=== PATIENT | female | born 1940 | race Caucasian/White ===

== ENCOUNTER → 2020-03-01 | Outpatient (BNVA) | payer MEDICARE, BC, SELFPAY | END | disposition home or self-care (01) | PROVIDERS: PCP Family Medicine; Visit Provider Family Medicine ==

== ENCOUNTER 2024-08-09 21:03 | Emergency (ER) | payer MEDICARE, BC, SELFPAY ==
--- NOTE | 2024-08-09 21:07 | XR_ITS ---
Examination: Pelvic ultrasound, transabdominal, complete Technique: Transabdominal ultrasound of the pelvis performed using grayscale imaging Date and time of exam: August 09, 2024 2129 hrs. Indications: Onset vaginal bleeding today Findings: Uterus 8.8 cm endometrial stripe visualized Uterine fundal probable fluid 18 mm Suspicious for 3.1 cm Fundal mass Ovaries obscured by bowel gas Impression: Recommend transvaginal pelvic sonography follow-up to exclude uterine fundal mass 3.1 x 2.8 x 2.8 cm
--- NOTE | 2024-08-09 21:09 | PD.EDADULT ---
ED General RME/HPI General Chief complaint: Vaginal Bleeding Stated complaint: VAGINAL BLEEDING Time Seen by Provider: 08/09/24 22:31 Arrival date/time: 08/09/24 21:03 RME / HPI RME / HPI narrative: Patient is 83 years old female with past medical history of hypertension, osteoporosis, history of recurrent falls, atrial fibrillation on Xarelto, seizure and Parkinson's disease, uterine fibroids presented to the ED due to worsening vaginal bleeding. She reports bleeding began approximately 1 year ago and was just spotting. Today she developed heavy bleeding at home and called EMS. She was seen by B[employer] DES[employer] SALES CONSULTANT 1 year ago and biopsy was taken but the sample wasn't sufficient, she was offered to have surgery but refused and never followed up. She denies any fever, chills, abdominal pain, rectal bleeding, melena, diarrhea. She denies dysuria symptoms. Related Data Home Medications ?Medication ?Instructions ?Recorded ?Confirmed benazepril 20 mg tablet 20 mg PO QDAY High Blood Pressure 06/07/13 02/25/24 Held on 02/29/24. ##0 Instructions: Resume on 03/07/24. Hold due to normal BP. Resume per PCP alendronate 70 mg tablet 70 mg PO QWEEK #0 tabs 09/12/14 02/25/24 levetiracetam 750 mg tablet 750 mg PO BID 01/26/20 02/25/24 phenytoin sodium extended 100 mg 100 mg PO HS Seizures 02/25/24 02/25/24 capsule rivaroxaban 15 mg tablet (Xarelto) 15 mg PO HS 02/25/24 02/25/24 Previous Rx's ?Medication ?Instructions ?Recorded amiodarone 200 mg tablet 200 mg PO BID #60 tabs 03/01/24 hydrocodone 5 mg-acetaminophen 325 1 tab PO Q6H PRN pain #20 tabs 03/01/24 mg tablet Allergies Allergy/AdvReac Type Severity Reaction Status Date / Time No Known Allergies Allergy Verified 08/09/24 21:10 Review of Systems Review of Systems Systems Reviewed: All systems reviewed, normal except as documented ED Exam Narrative Physical exam: Gen: Well-developed and well-nourished eldely female. HEENT: NCAT, PERRLA, EOMI, MMM, anicteric conjunctivae. CVS: normal S1 and S2. RRR. No M/R/G. Resp: CTA B/L. No rhonchi, rales, crackles or wheezing. : No CVA or suprapubic tenderness. Abd: soft, non-tender, non-distended. BS+ in all 4 quadrants. MSK: Good ROM in BUE & BLE. No edema or rash. Neuro: CN II-XII grossly intact. Strength 5/5 in BUE & BLE. Alert and oriented x3. Tremor is noted in head and BUE. Psych: appropriate mood and affect. Course Quality Measures none Orders Category Date Time Status Landscape Nurseryman Q4H START 00 Care 08/09/24 21:08 Active IV [Insert IV] NOW Care 08/09/24 21:08 Active Straight [In and Out Catheter] X1 Care 08/09/24 22:27 Active US pelvic complete Stat Exams 08/09/24 21:07 Completed CBC Stat Lab 08/09/24 21:24 Completed CMP [Comprehensive Metabolic Panel] Stat Lab 08/09/24 21:24 Completed INR [Prothrombin Time with INR] Stat Lab 08/09/24 21:24 Completed PTT [Partial Thromboplastin Time] Stat Lab 08/09/24 21:24 Completed Type and Screen Stat Lab 08/09/24 21:24 Completed Urinalysis Stat Lab 08/09/24 23:01 Completed Vital Signs Vital signs: Vital Signs Temperature 98.6 F 08/09/24 21:10 Pulse Rate 69 08/09/24 21:10 Respiratory Rate 12 08/09/24 21:10 Blood Pressure 161/66 H 08/09/24 21:10 Pulse Oximetry (%) 98 08/09/24 21:10 Oxygen Delivery Method Room Air 08/09/24 21:10 [facility] Patient data External records reviewed:: [facility] previous records and EMS form Clinical information provided by:: patient and EMS Social determinants that could affect healthcare access:: none Patient has the following chronic illnesses:: hypertension, osteoporosis, history of recurrent falls, atrial fibrillation on Xarelto, seizure and Parkinson's disease, uterine fibroids How is presenting disease/condition affected by chronic disease/condition?: exacerbated by Evaluation data The following diagnostics were reviewed and interpreted by me:: lab results and radiology exam(s) Lab and/or radiology exams considered but not ordered:: CTAP Interpretation Summary: Uterine fibroid, suspicion for uterine cancer. Medications Medications considered but not ordered:: na Medication administrations:: none Consultations Consultation(s) initiated? (list below): No Diagnosis Differential Diagnosis ED Complaint MDM: Fibroid, uterine cancer, endometrial hyperplasia Most likely diagnosis given after review of the tests above:: Fibroid, possible uterine cancer. Admission Indicated Admission indicated?: not indicated Explain why admission is indicated or not indicated:: Patient is hemodynamically stable, her hemoglobin is 10.8. Patient refused transvaginal US. She will need to follow-up with PCP and [employer]ANT for definitive diagnostic and management of her fibroid and possible uterine cancer. Admission Request Was there a request for admission?: No Disposition Plan Disposition Plan: Discharge Discharge Attestation Discharge Attestation: The patient and all family members were given an opportunity to ask questions and understood the discharge instructions. Discharge instructions specifically effects, indications for sooner follow up or return to the emergency department, and the expected course of current diagnosis. Patient condition: Stable Medical Decision Making Differential Diagnosis Differential Diagnosis: Fibroid, uterine cancer, endometrial hyperplasia Lab Data 08/09/24 21:24 08/09/24 21:24 Labs: Lab Results 08/09/24 08/09/24 Range/Units 21:24 23:01 WBC 6.4 (3.6-11.0) Thou/mm3 RBC 3.37 L (4.00-5.20) Miln/mm3 Hgb 10.8 L (12.0-16.0) g/dL Hct 31.9 L (36.0-46.0) % MCV 95 (80-100) fL MCH 32.0 (25.0-35.0) pg MCHC 33.9 (31.0-37.0) g/dl RDW Std Deviation 45.0 (36.4-46.3) fL Plt Count 248 (140-440) Thou/mm3 Neut % (Auto) 53 (37-80) % Lymph % (Auto) 40 (10-50) % [place] % (Auto) 6 (0-12) % Eos % (Auto) 1 (0-10) % Baso % (Auto) 1 (0-2.5) % Neut # (Auto) 3.4 (1.8-7.7) Thou/mm3 Lymph # (Auto) 2.6 (1.0-4.8) Thou/mm3 [place] # (Auto) 0.4 (0.0-0.8) Thou/mm3 Eos # (Auto) 0.0 (0.0-0.5) Thou/mm3 Baso # (Auto) 0.0 (0.0-0.2) Thou/mm3 Immature Gran # (Auto) 0.01 H (0.00-0.00) Thou/mm3 Absolute Nucleated RBC 0.00 (0.00-0.00) Thou/mm3 Immature Gran % 0 (0-0) % Nucleated RBC % 0 (0) /100 WBC PT 15.3 H (9.0-12.2) Seconds INR 1.4 H (0.9-1.3) APTT 39.5 H (22.0-36.0) Seconds Sodium 145 (136-145) mMol/L Potassium 4.1 (3.4-5.1) mMol/L Chloride 109 H (98-107) mMol/L Carbon Dioxide 26.4 (20.0-31.0) mMol/L Anion Gap 10 (7-16) BUN 12 (9-23) mg/dL Creatinine 1.0 (0.6-1.3) mg/dL Estim Creat Clear Calc 36.0 L (>60) mL/min eGFR 55 L (60 - ) See Note BUN/Creatinine Ratio 12 (12-20) Ratio Glucose 105 (74-106) mg/dL Calculated Osmolality 288 (275-295) Calcium 9.7 (8.3-10.6) mg/dL Corrected Calcium 9.7 (8.5-10.1) mg/dL Total Bilirubin 0.2 L (0.3-1.2) mg/dL AST 14 (0-34) U/L ALT 7 L (10-49) U/L Alkaline Phosphatase 147 H (46-116) U/L Total Protein 6.8 (5.7-8.2) gm/dL Albumin 4.2 (3.4-4.8) gm/dL Globulin 2.6 (2.3-3.5) gm/dL Albumin/Globulin Ratio 1.6 (1.2-2.2) Ur Collection Type Clean Catch Urine Color Colorless A (Lt Yel-Yel) Urine Clarity Clear (Clear/Hazy) Urine pH 7.0 (5.0-7.0) Ur Specific [place] 1.005 (1.001-1.035) Urine Protein Negative (Neg - Trace) Urine Glucose (UA) Negative (Negative) Urine Ketones Negative (Negative) Urine Blood Trace (Negative) Urine Nitrite Negative (Negative) Urine Bilirubin Negative (Negative) Urine Urobilinogen (Auto) Negative (0.0-1.0) mg/dL Ur Leukocyte Esterase Negative (Negative) Urine RBC < 1 (0-3) /hpf Urine WBC < 1 (0-5) /hpf Ur Squamous Epith Cells < 1 (0-5) /hpf Urine Bacteria None (None) Blood Type A Positive Antibody Screen NEGATIVE Blood Bank Wristband ID Yes Discharge Plan Plan Patient Disposition: HOME (Self Care) Patient condition on transfer: Stable Prescriptions/Referrals Prescriptions/Med Rec: No Action benazepril 20 mg Tablet 20 mg PO QDAY Qty: 0 alendronate 70 mg Tablet 70 mg PO QWEEK Qty: 0 Rx Instructions: THURSDAY levetiracetam 750 mg tablet 750 mg PO BID phenytoin sodium extended 100 mg capsule 100 mg PO HS Patient Comments: FOR SEIZURE CONTROL Xarelto 15 mg tablet 15 mg PO HS amiodarone 200 mg tablet 200 mg PO BID Qty: 60 0RF hydrocodone-acetaminophen 5-325 mg tablet 1 tab PO Q6H MDD 20mg PRN (Reason: pain) Qty: 20 0RF Referrals: No Primary/Family,Physician [Primary Care Provider] - In 1 week Problem List Clinical Impression: Vaginal bleeding, Fibroid, uterine Patient/Caregiver Discharge Instructions Additional Instructions: -follow up with PCP and OBGYN within 1 week. -You need to have definitive work up including biopsy to rule out malignancy. Failure to do so can lead to misdiagnose and significant complications. -continue home medications as prescribed. -return to the Ed if symptoms recur or worsen. Print Language: Maltese Stand Alone Forms: Jennifer Award Info., Patient Portal Info Letter Attestation Attestation I, Dr. Mas, have reviewed the history, exam, and assessment of the patient. I have evaluated the patient independently and agree with the plan of care documented by resident Presley Allen. All diagnostic studies were reviewed and discussed. I confirm the diagnosis as documented by the resident. I was present during the Medical Decision Making for this patient. The patient's plan of care was created between myself and the Resident and consistent with our discussion of the patient's case.
[2024-08-09 21:10] VITALS: BP 161/66; PULSE 68; PULSE 69; PULSE 85; RESP 12; RESP 24; TEMP 37; O2SAT 95; O2SAT 98; BMI 25.6
[2024-08-09 21:11] VITALS: BP 161/66; PULSE 69; RESP 19; TEMP 36.8; O2SAT 98
[2024-08-09 22:03] LABS: Basophils % (Auto) 1 % (0-2.5); Eosinophils % (Auto) 1 % (0-10); Hematocrit 31.9 % (36.0-46.0); Hemoglobin 10.8 g/dL (12.0-16.0); Immature Granulocytes % (Auto) 0 % (0-0); Immature Granulocytes Auto 0.01 Thou/mm3 (0.00-0.00); Lymphocytes # (Auto) 2.6 Thou/mm3 (1.0-4.8); Lymphocytes % (Auto) 40 % (10-50); Mean Corpuscular HGB Conc 33.9 g/dl (31.0-37.0); Mean Corpuscular Volume 95 fL (80-100); Monocytes # (Auto) 0.4 Thou/mm3 (0.0-0.8); Monocytes % (Auto) 6 % (0-12); Neutrophils # (Auto) 3.4 Thou/mm3 (1.8-7.7); Neutrophils % (Auto) 53 % (37-80); Nucleated Red Blood Cell % 0 /100 WBC (0); Platelet Count 248 Thou/mm3 (140-440); Red Blood Count 3.37 Miln/mm3 (4.00-5.20); White Blood Count 6.4 Thou/mm3 (3.6-11.0)
[2024-08-09 22:11] LABS: INR 1.4 (0.9-1.3); Partial Thromboplastin Time 39.5 Seconds (22.0-36.0); Prothrombin Time 15.3 Seconds (9.0-12.2)
[2024-08-09 22:22] LABS: Alanine Aminotransferase 7 U/L (10-49); Albumin, Serum 4.2 gm/dL (3.4-4.8); Albumin/Globulin Ratio 1.6 (1.2-2.2); Alkaline Phosphatase 147 U/L (46-116); Anion Gap 10 (7-16); Aspartate Amino Transferase 14 U/L (0-34); BUN/Creatinine Ratio 12 Ratio (12-20); Bilirubin,Total 0.2 mg/dL (0.3-1.2); Blood Urea Nitrogen 12 mg/dL (9-23); Calcium 9.7 mg/dL (8.3-10.6); Calcium (Corrected) 9.7 mg/dL (8.5-10.1); Carbon Dioxide 26.4 mMol/L (20.0-31.0); Chloride 109 mMol/L (98-107); Globulin 2.6 gm/dL (2.3-3.5); Glucose 105 mg/dL (74-106); Osmolality,Calculated 288 (275-295); Potassium 4.1 mMol/L (3.4-5.1); Sodium 145 mMol/L (136-145); Total Protein 6.8 gm/dL (5.7-8.2); eGFR 55 See Note
--- NOTE | 2024-08-09 22:41 | EDNOTE_ITS ---
Emergency Room Addendum Addendum Narrative: I spoke to the patient and the daughter. The patient has been seen by STAFF [employer] OFFICER and had a biopsy but she states there was not enough sample and the patient states they wanted to do surgery she did not follow-up. When I talked to the daughter about this she states that Dr. Rey would like to send her to [place] and the patient has an appointment on the . I talked to her about whether she needs a pelvic ultrasound today and she would not want that today. I did talk to the daughter let her know that on her July pelvic ultrasound they suggested perhaps better visualization could have been completed with an MRI with and without contrast. I asked the daughter to discuss this with the primary care for further management, if needed The patient is not actively bleeding at this time and has not changed her pad when she has been in the emergency department
[2024-08-09 23:10] LABS: Collection Type, Urine Clean Catch
[2024-08-09 23:17] LABS: Bilirubin,Urine Negative (Negative); Blood,Urine Trace (Negative); Clarity,Urine Clear (Clear/Hazy); Color,Urine Colorless (Lt Yel-Yel); Glucose, Urine Negative (Negative); Ketones,Urine Negative (Negative); Leukocyte Esterase,Urine Negative (Negative); Nitrite,Urine Negative (Negative); Protein,Urine Negative (Neg - Trace); RBC,Urine < 1 /hpf (0-3); Specific Gravity,Urine 1.005 (1.001-1.035); Squamous Epithelial Cell,Urine < 1 /hpf (0-5); Urobilinogen,Urine Negative mg/dL (0.0-1.0); WBC,Urine < 1 /hpf (0-5)
[2024-08-10 00:05] VITALS: BP 175/80; PULSE 68; RESP 19; O2SAT 99
== END 2024-08-09 23:40 | disposition home or self-care (01) ==
PROVIDERS: Student in an Organized Health Care Education/Training Program; Emergency Provider Emergency Medicine
DX: D25.9 Leiomyoma of uterus, unspecified (principal)
CPT/HCPCS: 36415; 76856; 80053; 81001; 85025; 85610; 85730; 86850; 86900; 86901; 99284

== ENCOUNTER → 2024-08-16 | Outpatient (CLI) | payer MEDICARE, BC, SELFPAY ==
--- NOTE | 2024-08-16 09:09 | XR_ITS ---
Examination: Transvaginal ultrasound of the pelvis, complete Technique: Transvaginal sonographic images pelvis performed using alexander scale imaging Exam date and time: August 16, 2024 0927 hours INDICATIONS: Vaginal bleeding beginning one year ago FINDINGS: Uterus 6.2 cm endometrial stripe 0.3 cm Small benign cervical cyst No uterine mass Right ovary obscured by bowel gas Left ovary 1.8 cm arterial flow IMPRESSION: Negative for uterine mass.
== END | disposition home or self-care (01) ==
LOC: CDIM 09:03
PROVIDERS: PCP Family Medicine; Referring Provider Nurse Practitioner Family; Visit Provider Nurse Practitioner Family
DX: N93.9 Abnormal uterine and vaginal bleeding, unspecified (principal)
CPT/HCPCS: 76830

== ENCOUNTER 2024-09-26 12:55 | Emergency (ER) | payer MEDICARE, BC, SELFPAY ==
[2024-09-26 12:58] VITALS: PULSE 66; O2SAT 98
[2024-09-26 13:26] VITALS: BP 160/75; PULSE 60; RESP 20; TEMP 36.7; O2SAT 99
--- NOTE | 2024-09-26 13:29 | XR_ITS ---
Examination: AP lateral chest 2 views TECHNIQUE: Sitting AP lateral chest 2 views Exam date and time: September 18, 2024 1435 hours Comparison 02/25/2024 INDICATIONS: Coughing shortness of breath beginning 3 days ago FINDINGS: Normal heart size No pneumonia or pulmonary edema Mild accentuation basilar bronchovascular markings Prominent osteopenia IMPRESSION: Mild basilar bronchitis pattern
--- NOTE | 2024-09-26 13:29 | EKG_ITS ---
[facility] Test Date: 2024-09-26 Pat Name: MONICA HADDAD Department: Room: - Gender: Female Claim Professional: : 1940 Requested By: Robby Brown (OSORIO) Order Number: [id number] Reading MD: Robby Brown (KEY ACCOUNT REPRESENTATIVE) Measurements Intervals [place] Rate: 64 P: 59 LA: 224 QRS: -30 QRSD: 85 T: -18 QT: 423 QTc: 436 Interpretive Statements SINUS RHYTHM WITH FIRST DEGREE AV BLOCK LOW QRS VOLTAGE IN PRECORDIAL LEADS [QRS DEFLECTION < 1.0 mV IN CHEST LEADS] POSSIBLE ANTERIOR MYOCARDIAL INFARCTION , OF INDETERMINATE AGE [30 ms Q WAVE IN V3/V4, OR R < 0.2 mV IN V4] Compared to ECG 02/25/2024 06:46:52 Myocardial infarct finding now present /store/S0/[id number].pdf
--- NOTE | 2024-09-26 13:30 | PD.EDRME ---
Rapid Medical Screening Exam [facility] Arrival date/time: 09/26/24 12:55 83-year-old female presents to the emergency department for complaints of cough, congestion and shortness of breath and generalized fatigue Chief Complaint: Flu Like Symptoms Vital signs: Vital Signs Temperature 98.1 F 09/26/24 13:26 Pulse Rate 60 09/26/24 13:26 Respiratory Rate 20 09/26/24 13:26 Blood Pressure 160/75 H 09/26/24 13:26 Pulse Oximetry (%) 99 09/26/24 13:26 Oxygen Delivery Method Room Air 09/26/24 13:26
[2024-09-26 14:00] LABS: Basophils % (Auto) 1 % (0-2.5); Eosinophils % (Auto) 1 % (0-10); Hematocrit 35.4 % (36.0-46.0); Hemoglobin 12.3 g/dL (12.0-16.0); Immature Granulocytes % (Auto) 0 % (0-0); Immature Granulocytes Auto 0.02 Thou/mm3 (0.00-0.00); Lymphocytes # (Auto) 2.3 Thou/mm3 (1.0-4.8); Lymphocytes % (Auto) 37 % (10-50); Mean Corpuscular HGB Conc 34.7 g/dl (31.0-37.0); Mean Corpuscular Hemoglobin 32.5 pg (25.0-35.0); Mean Corpuscular Volume 94 fL (80-100); Monocytes # (Auto) 0.3 Thou/mm3 (0.0-0.8); Monocytes % (Auto) 4 % (0-12); Neutrophils # (Auto) 3.5 Thou/mm3 (1.8-7.7); Neutrophils % (Auto) 57 % (37-80); Nucleated Red Blood Cell % 0 /100 WBC (0); Platelet Count 285 Thou/mm3 (140-440); RDW Standard Deviation 42.9 fL (36.4-46.3); Red Blood Count 3.78 Miln/mm3 (4.00-5.20); White Blood Count 6.1 Thou/mm3 (3.6-11.0)
[2024-09-26 14:18] LABS: INR 1.1 (0.9-1.3); Prothrombin Time 11.9 Seconds (9.0-12.2)
[2024-09-26 14:19] LABS: B-Type Natriuretic Peptide 265 pg/mL (0-100)
[2024-09-26 14:34] LABS: Alanine Aminotransferase < 7 U/L (10-49); Albumin, Serum 4.6 gm/dL (3.4-4.8); Albumin/Globulin Ratio 1.7 (1.2-2.2); Alkaline Phosphatase 155 U/L (46-116); Anion Gap 8 (7-16); Aspartate Amino Transferase 13 U/L (0-34); BUN/Creatinine Ratio 19 Ratio (12-20); Bilirubin,Total 0.3 mg/dL (0.3-1.2); Blood Urea Nitrogen 19 mg/dL (9-23); Calcium 9.6 mg/dL (8.3-10.6); Calcium (Corrected) 9.6 mg/dL (8.5-10.1); Carbon Dioxide 25.7 mMol/L (20.0-31.0); Chloride 107 mMol/L (98-107); Globulin 2.7 gm/dL (2.3-3.5); Glucose 96 mg/dL (74-106); Magnesium 1.9 mg/dL (1.6-2.6); Osmolality,Calculated 283 (275-295); Potassium 4.6 mMol/L (3.4-5.1); Sodium 141 mMol/L (136-145); Total Protein 7.3 gm/dL (5.7-8.2); Troponin I < 0.020 ng/mL (0.0-0.045); eGFR 55 See Note
== END 2024-09-26 15:59 | disposition left against medical advice (07) ==
PROVIDERS: Nurse Practitioner Primary Care; Emergency Provider Emergency Medicine; PCP Family Medicine
DX: R05.9 Cough, unspecified (principal); R06.02 Shortness of breath; R53.83 Other fatigue; I44.0 Atrioventricular block, first degree; Z53.29 Procedure and treatment not carried out because of patient's decision for other reasons
CPT/HCPCS: 36415; 71046; 80053; 83735; 83880; 84484; 85025; 85610; 85730; 93005; 99281

== ENCOUNTER 2025-01-04 10:53 | Emergency (ER) | payer MEDICARE, BC, SELFPAY ==
--- NOTE | 2025-01-04 11:05 | EKG_ITS ---
[facility] Test Date: 2025-01-04 Pat Name: MONICA HADDAD Department: Room: - Gender: Female Features Reporter: : 1940 Requested By: Bonny Kovacs Order Number: [id number] Reading MD: Bonny Kovacs Measurements Intervals [place] Rate: 73 P: 31 SD: 206 QRS: -17 QRSD: 80 T: -23 QT: 365 QTc: 403 Interpretive Statements SINUS RHYTHM LOW QRS VOLTAGE IN PRECORDIAL LEADS [QRS DEFLECTION < 1.0 mV IN CHEST LEADS] POSSIBLE ANTERIOR MYOCARDIAL INFARCTION , OF INDETERMINATE AGE [30 ms Q WAVE IN V3/V4, OR R < 0.2 mV IN V4] Compared to ECG 09/26/2024 13:34:25 First degree AV block no longer present Myocardial infarct finding still present /store/S0/[id number]/[id number].pdf
[2025-01-04 11:15] VITALS: BP 120/72; PULSE 73; RESP 17; TEMP 37.1; O2SAT 98
--- NOTE | 2025-01-04 11:35 | PD.EDRME ---
Rapid Medical Screening Exam RME Arrival date/time: 01/04/25 10:53 Chief Complaint: General Adult/Misc Complain Vital signs: Vital Signs Temperature 98.7 F 01/04/25 11:15 Pulse Rate 73 01/04/25 11:15 Respiratory Rate 17 01/04/25 11:15 Blood Pressure 120/72 01/04/25 11:15 Pulse Oximetry (%) 98 01/04/25 11:15 Oxygen Delivery Method Room Air 01/04/25 11:15 Pulse ox is 98%. Vital signs reviewed by provider: Yes RME Narrative: 84-year-old female presents to the urgent care with complaint of decreased blood pressure earlier this morning of 104/51, shortness of breath difficulty breathing. Denies chest pain.
--- NOTE | 2025-01-04 11:36 | XR_ITS ---
Examination: PA lateral chest 2 views TECHNIQUE: Upright PA lateral chest 2 views Date and time: January 04, 2025 1205 hours INDICATIONS: Shortness of breath hypotension difficulty breathing this morning. FINDINGS: Subsegmental atelectasis in the left lower lung zone Minimal prominence left ventricle Mild vascular congestion. No lobar pneumonia or pulmonary edema. Increased AP dimension chest IMPRESSION: Mild hyperexpansion No pneumonia or pulmonary edema
[2025-01-04 11:55] LABS: Collection Type, Urine Clean Catch
[2025-01-04 12:12] LABS: Bacteria,Urine Rare; Bilirubin,Urine Negative (Negative); Blood,Urine 1+ (Negative); Color,Urine Lt-Yellow (Lt Yel-Yel); Glucose, Urine Negative (Negative); Ketones,Urine Negative (Negative); Leukocyte Esterase,Urine Positive (Negative); Nitrite,Urine Negative (Negative); PH,Urine 6.5 (5.0-7.0); Protein,Urine Trace (Neg - Trace); RBC,Urine 3 /hpf (0-3); Specific Gravity,Urine 1.010 (1.001-1.035); Squamous Epithelial Cell,Urine 4 /hpf (0-5); Urobilinogen,Urine Negative mg/dL (0.0-1.0); WBC,Urine 22 /hpf (0-5)
[2025-01-04 12:13] LABS: Clarity,Urine Hazy (Clear/Hazy)
[2025-01-04 12:18] LABS: Amphetamine/Methamp Scrn,U Negative (Negative); Barbiturate Screen,Urine Negative (Negative); Benzodiazepines Screen,Urine Negative (Negative); Benzoylecgonine Screen, Ur Negative (Negative); Fentanyl Screen,Urine Negative (Negative); Opiate Screen,Urine Negative (Negative); THC Screen,Urine Negative (Negative)
[2025-01-04 12:26] LABS: Basophils # (Auto) 0.0 Thou/mm3 (0.0-0.2); Basophils % (Auto) 0 % (0-2.5); Eosinophils # (Auto) 0.0 Thou/mm3 (0.0-0.5); Eosinophils % (Auto) 1 % (0-10); Hematocrit 30.8 % (36.0-46.0); Hemoglobin 11.0 g/dL (12.0-16.0); Immature Granulocytes Auto 0.02 Thou/mm3 (0.00-0.00); Lymphocytes # (Auto) 1.1 Thou/mm3 (1.0-4.8); Lymphocytes % (Auto) 19 % (10-50); Mean Corpuscular HGB Conc 35.7 g/dl (31.0-37.0); Mean Corpuscular Hemoglobin 32.7 pg (25.0-35.0); Mean Corpuscular Volume 92 fL (80-100); Monocytes # (Auto) 0.5 Thou/mm3 (0.0-0.8); Monocytes % (Auto) 9 % (0-12); Neutrophils # (Auto) 4.2 Thou/mm3 (1.8-7.7); Neutrophils % (Auto) 71 % (37-80); Nucleated Red Blood Cell # 0.00 Thou/mm3 (0.00-0.00); Nucleated Red Blood Cell % 0 /100 WBC (0); Platelet Count 198 Thou/mm3 (140-440); RDW Standard Deviation 41.9 fL (36.4-46.3); Red Blood Count 3.36 Miln/mm3 (4.00-5.20); White Blood Count 5.9 Thou/mm3 (3.6-11.0)
[2025-01-04 12:48] LABS: B-Type Natriuretic Peptide 154 pg/mL (0-100)
[2025-01-04 12:55] LABS: INR 1.1 (0.9-1.3); Partial Thromboplastin Time 34.9 Seconds (22.0-36.0); Prothrombin Time 11.7 Seconds (9.0-12.2)
[2025-01-04 13:02] LABS: Alanine Aminotransferase < 7 U/L (10-49); Albumin, Serum 4.5 gm/dL (3.4-4.8); Albumin/Globulin Ratio 2.0 (1.2-2.2); Alkaline Phosphatase 163 U/L (46-116); Anion Gap 10 (7-16); Aspartate Amino Transferase 12 U/L (0-34); BUN/Creatinine Ratio 15 Ratio (12-20); Bilirubin,Total 0.3 mg/dL (0.3-1.2); Blood Urea Nitrogen 15 mg/dL (9-23); Calcium 8.9 mg/dL (8.3-10.6); Calcium (Corrected) 8.9 mg/dL (8.5-10.1); Carbon Dioxide 23.6 mMol/L (20.0-31.0); Chloride 100 mMol/L (98-107); Creatinine (Component) 1.0 mg/dL (0.6-1.3); Globulin 2.3 gm/dL (2.3-3.5); Glucose 99 mg/dL (74-106); LDH (Lactate Dehydrogenase) 200 U/L (120-246); Magnesium 1.9 mg/dL (1.6-2.6); Osmolality,Calculated 269 (275-295); Potassium 4.4 mMol/L (3.4-5.1); Sodium 134 mMol/L (136-145); Total Protein 6.8 gm/dL (5.7-8.2); Troponin I < 0.020 ng/mL (0.0-0.045); eGFR 55 See Note
--- NOTE | 2025-01-04 13:57 | EDNOTE_ITS ---
<Statement entered by Bonny Chang MD - 01/05/25 09:35> As co-signing physician, I was present and available for consult prn. I concur with the plan and care as documented by the midlevel provider. ED General RME/HPI General Chief complaint: General Adult/Misc Complain Stated complaint: Low blood pressure, swollen right ankle Time Seen by Provider: 01/04/25 13:38 Arrival date/time: 01/04/25 10:53 RME / HPI RME / HPI narrative: 84-year-old female presents to the urgent care with complaint of decreased blood pressure earlier this morning of 104/51, shortness of breath difficulty breathing. Patient also complained of mild right ankle swelling nontender no redness this been ongoing for the last few days. Denies chest pain. Patient denies any cough denies any other complaints no medications taken prior to arrival. Patient is taking Xarelto. Related Data Home Medications ?Medication ?Instructions ?Recorded ?Confirmed benazepril 20 mg tablet 20 mg PO QDAY High Blood Pre ssure 06/07/13 02/25/24 Held on 02/29/24. ##0 Instructions: Resume on 03/07/24. Hold due to normal BP. Resume per PCP alendronate 70 mg tablet 70 mg PO QWEEK #0 tabs 09/1202/25/24 levetiracetam 750 mg tablet 750 mg PO BID 01/26/20 phenytoin sodium extended 100 mg 100 mg PO HS Seizures 02/25/24 02/25/24 capsule rivaroxaban 15 mg tablet (Xarelto) 15 mg PO HS 4 02/25/24 Previous Rx's ?Medication ?Instructions ?Recorded amiodarone 200 mg tablet 200 mg PO BID #60 tabs 03/01 hydrocodone 5 mg-acetaminophen 325 1 tab PO Q6H PRN pa in #20 tabs 03/01/24 mg tablet Allergies Allergy/AdvReac Type Severity Reaction Status Date / Time No Known Allergies Allergy Verified 01/04/25 11:04 Review of Systems Review of Systems Narrative Review of Systems: Review of system reviewed and within normal limits except mentioned in HPI ED Exam Narrative Physical exam: VITAL SIGNS: Reviewed. GENERAL APPEARANCE: Alert and interactive, follows commands, no acute distress, HEAD AND FACE: Non-traumatic. ENT: PERRL, pink conjunctivitis, eyelid no trauma, Mucous membrane moist. NECK: Supple, nontender, no nuchal rigidity. CHEST: No tenderness, no crepitus, no paradoxical movement, no retractions. LUNGS: Clear, well ventilated, symmetric, no rales, no wheezing, no ronchi, no stridor, good breath sounds bilaterally. HEART: Regular rate, regular rhythm, no murmur, no gallops. ABDOMEN: Soft, positive bowel sounds, nondistended, no guarding, nontender, no rebound, no masses, RECTAL: Deferred. GENITAL: Deferred. NEUROLOGICAL: Gross motor function intact sensory function intact, Appropriate for age. MUSCULOSKELETAL: low back nontender, full range of motion. EXTREMITIES: Medial ankle swelling on the right nontender no redness nontender, full range of motion. SKIN: Color pink, dry, no rash, no lacerations, no abrasions, no contusions. LYMPHATICS: Deferred. Course Quality Measures none Orders Category Date Time Status EKG (ED ONLY) *Do not use* NOW Care 01/04/25 11:05 Completed EKG (ED ONLY) *Do not use* NOW Care 01/04/25 11:36 Completed EKG (ED Only) Stat Exams 01/04/25 11:05 Draft EKG (ED Only) Stat Exams 01/04/25 11:36 Ordered XR chest 2V Stat Exams 01/04/25 11:36 Completed B-Type Natriuretic Peptide Stat Lab 01/04/25 11:52 Completed CBC Stat Lab 01/04/25 11:52 Completed Comprehensive Metabolic Panel Stat Lab 01/04/25 11:52 Completed Drug Screen,Urine Stat Lab 01/04/25 11:49 Completed LDH (Lactate Dehydrogenase) Stat Lab 01/04/25 11:52 Completed Magnesium Stat Lab 01/04/25 11:52 Completed Partial Thromboplastin Time Stat Lab 01/04/25 11:52 Completed Prothrombin Time with INR Stat Lab 01/04/25 11:52 Completed Troponin I Stat Lab 01/04/25 11:52 Completed Urinalysis Stat Lab 01/04/25 11:49 Completed Ondansetron Inj [Zofran Inj] Med 01/04/25 13:18 Discontinued 4 mg IVP X1 ONE Sodium Chloride 0.9% 1000 ml [Ns] 1,000 ml Med 01/04/25 13:19 Discontinued Multivitamin Inj [Infuvite Inj] 10 ml IV 999 mls/hr Vital Signs Vital signs: Vital Signs Temperature 98.7 F 01/04/25 11:15 Pulse Rate 73 01/04/25 11:15 Respiratory Rate 17 01/04/25 11:15 Blood Pressure 120/72 01/04/25 11:15 Pulse Oximetry (%) 98 01/04/25 11:15 Oxygen Delivery Method Room Air 01/04/25 11:15 Discharge Plan Plan Patient Disposition: HOME (Self Care) Discharge Disposition comment: stable Prescriptions/Referrals Prescriptions/Med Rec: No Action benazepril 20 mg Tablet 20 mg PO QDAY Qty: 0 alendronate 70 mg Tablet 70 mg PO QWEEK Qty: 0 Rx Instructions: THURSDAY levetiracetam 750 mg tablet 750 mg PO BID phenytoin sodium extended 100 mg capsule 100 mg PO HS Patient Comments: FOR SEIZURE CONTROL Xarelto 15 mg tablet 15 mg PO HS amiodarone 200 mg tablet 200 mg PO BID Qty: 60 0RF hydrocodone-acetaminophen 5-325 mg tablet 1 tab PO Q6H MDD 20mg PRN (Reason: pain) Qty: 20 0RF Referrals: Christopher Rey MD [Primary Care Provider] - In 1 week Problem List Clinical Impression: SOB (shortness of breath), Ankle swelling Patient/Caregiver Discharge Instructions Discharge Activity: activity as tolerated Education Materials: ED Shortness of Breath (Dyspnea) Additional Instructions: Thank you for the opportunity for serving you today. You are stable for discharged . You are advised to: Follow-up with your PCP in 1 to 2 days Return to ED for worsening of symptoms Print Language: St Helen[place] Stand Alone Forms: Jennifer Award Info., Patient Portal Info Letter PA/ENVIRONMENTAL GEOLOGIST Supervising Physician PA/ENVIRONMENTAL GEOLOGIST Supervising Physician: MD Mendel MDM Narrative MDM hospital course: 84-year-old female presents to the urgent care with complaint of decreased blood pressure earlier this morning of 104/51, shortness of breath difficulty breathing. Patient also complained of mild right ankle swelling nontender no redness this been ongoing for the last few days. Denies chest pain. Patient denies any cough denies any other complaints no medications taken prior to arrival. Patient is taking Xarelto. Patient's workup today all came back unremarkable including normal chest x-ray, normal CMP, except for slight anemia 10.0. Urinalysis positive for leukocyte esterase, WBC of 22 however patient had squamous cells of 4, bacteria's rare, patient is not having any symptoms. Patient will not be treated at this time, will wait for the culture and sensitivity results. Will call her for antibiotic if we notice some growth. Medication Administration(s) Medication Administration History Discontinued Medications Multivitamins/Minerals 10 ml/ (Sodium Chloride) 1,010 mls @ 999 mls/hr IV .Q1H1M ONE Stop: 01/04/25 14:19 Last Admin: 01/04/25 13:29 Dose: Not Given Documented By: DARON Non-Admin Reason: Cancelled by Provider Ondansetron HCl (Ondansetron Inj 2 Mg/Ml Inj 2 Ml) 4 mg IVP X1 ONE; Protocol Stop: 01/04/25 13:19 Last Admin: 01/04/25 13:29 Dose: Not Given Documented By: MF Non-Admin Reason: Cancelled by Provider
== END 2025-01-04 14:30 | disposition home or self-care (01) ==
PROVIDERS: Physician Assistant; Emergency Provider Emergency Medicine; PCP Family Medicine
DX: R06.02 Shortness of breath (principal); M25.471 Effusion, right ankle; R94.31 Abnormal electrocardiogram [ECG] [EKG]
CPT/HCPCS: 36415; 71046; 80053; 80307; 80320; 81001; 83615; 83690; 83735; 83880; 84484; 85025; 85610; 85730; 93005; 99283; G0480